=== PATIENT | male | born 1955 | race Caucasian/White ===

== ENCOUNTER 2016-12-07 09:30 | Inpatient (IN) ==
[2016-11-30 16:51] LABS: Appearance,Urine CLEAR; Bilirubin,Urine NEG (NEG); Color,Urine STRAW; Glucose,Urine (UA) NEGATIVE (NEG); Leukocyte Esterase,Urine NEG /uL (NEG); Nitrate,Urine NEG (NEG); Protein,Urine NEG (NEG); Specific Gravity,Urine 1.002 (1.000-1.035); Urine Blood NEG mg/dL (<0.03); Urobilinogen,Urine NEG (NEG)
[2016-11-30 17:43] LABS: Basophils # (Auto) 0 K/mcL (0.0-0.3); Basophils % (Auto) 0.7 % (0.0-2.0); Eosinophils # (Auto) 0.3 K/mcL (0.0-0.7); Eosinophils % (Auto) 4.7 % (0.0-7.0); Lymphocytes # (Auto) 1.4 K/mcL (1.5-4.8); Lymphocytes % (Auto) 21.8 % (15.5-49.0); Mean Cell Volume 91.6 fL (80.0-100.0); Mean Corpuscular Hemoglobin 31.2 pg (26.0-34.0); Monocytes # (Auto) 0.6 K/mcL (0.1-0.9); Monocytes % (Auto) 9.8 % (1.0-12.0); Platelet Count 195 K/mcL (140-440); RBC 5.12 M/mcL (4.50-5.90); Red Cell Distribution Width 14.4 % (11.5-14.5)
[2016-11-30 17:48] LABS: Blood Urea Nitrogen 12 mg/dl (8-23)
[~2016-12-07 09:30] MED LIST: ACETAMINOPHEN 500 MG TABLET PO SCH; CELECOXIB 200 MG CAPSULE PO SCH; KETOROLAC 30 MG, ROPIVACAINE HCL/PF 49.5 ML, EPINEPHrine 0.5 MG, 0.9 % SODIUM CHLORIDE ... IJ SCH; PREGABALIN 75 MG CAPSULE PO SCH; oxyCODONE 10 MG TAB.ER.12H PO SCH
[2016-12-07] MEDS ORDERED: GABAPENTIN 300 MG CAPSULE PO ONE (14:12)
[2016-12-07] MEDS ORDERED: BETHANECHOL 25 MG TABLET PO ONE (14:12)
[2016-12-07] MEDS ORDERED: ceFAZolin 1 GM VIAL IV SCH ×2 (14:30→22:30)
[2016-12-07] MEDS ORDERED: TRANEXAMIC ACID 1,000 MG/10 ML VIAL IV ONE ×2 (15:00→17:10)
[2016-12-07] MEDS ORDERED: BUPIVACAINE LIPOSOMAL IJ ONE ×2 (15:00→15:27)
[2016-12-07] MEDS ORDERED: ROPIVACAINE HCL/PF 20 ML VIAL IJ ONE (15:00)
[2016-12-07] MEDS ORDERED: BETHANECHOL 10 MG TABLET PO ONE (15:00)
[2016-12-07] MEDS ORDERED: GENTAMICIN SULFATE 800 MG/20 ML VIAL IR ONE (15:41)
[2016-12-07] MEDS ORDERED: METOPROLOL TARTRATE 5 MG/5 ML VIAL IV PRN (16:06)
[2016-12-07] MEDS ORDERED: METHOCARBAMOL 1,000 MG/10 ML VIAL IV PRN (16:06)
[2016-12-07] MEDS ORDERED: MEPERIDINE 25 MG/ML SYRINGE IV PRN (16:06)
[2016-12-07] MEDS ORDERED: HYDROmorphone 2 MG/ML SYRINGE IV PRN ×2 (16:06→17:10)
[2016-12-07] MEDS ORDERED: ONDANSETRON 4 MG/2 ML VIAL IV PRN ×2 (16:06→17:10)
[2016-12-07] MEDS ORDERED: IPRATROPIUM/ALBUTEROL 3 ML AMPUL.NEB NEB PRN (16:06)
[2016-12-07] MEDS ORDERED: fentaNYL 100 MCG/2 ML VIAL IV PRN (16:06)
[2016-12-07] MEDS ORDERED: BENZOCAINE/MENTHOL 1 LOZENGE PO PRN ×2 (16:06→17:10)
[2016-12-07] MEDS ORDERED: LACTATED RINGERS 1,000 ML IV SCH (16:15)
[2016-12-07] MEDS ORDERED: POLYETHYLENE GLYCOL 3350 17 GM PACKET PO PRN (17:10)
[2016-12-07] MEDS ORDERED: BISACODYL 10 MG SUPP.RECT PR PRN (17:10)
[2016-12-07] MEDS ORDERED: HYDROcodone/APAP 10/325MG TABLET PO PRN (17:10)
[2016-12-07] MEDS ORDERED: FLEETS ADULT ENEMA PR PRN (17:10)
[2016-12-07] MEDS ORDERED: TEMAZEPAM 15 MG CAPSULE PO PRN (17:10)
[2016-12-07] MEDS ORDERED: MAGNESIUM HYDROXIDE 30 ML ORAL.SUSP PO PRN (17:10)
[2016-12-07] MEDS ORDERED: ACETAMINOPHEN 325 MG TABLET PO PRN (17:10)
--- NOTE | 2016-12-07 17:10 | Brief Operative Note ---
Date of procedure: 12/07/16 Pre-op diagnosis: Right knee severe djd all compartments Post-op diagnosis: same Procedure: Right TKA with felix robot Grafts/Implants: Yes Anesthesia: GETA Complications Description: 12/07/16 17:10 none Surgeon: Kalia Stoddard Beam Carrier Hauler Pusher: Jet Francisco Estimated blood loss (cc): 100 Tourniquet Time (Minutes): 76 Specimens Removed/Pathology: none sent Condition: stable Disposition: PACU
[2016-12-07] MEDS ORDERED: DIPHENOXYLATE HCL/ATROPINE 1 TABLET PO PRN (17:13)
[2016-12-07] MEDS ORDERED: MONTELUKAST 10 MG TABLET PO PRN (17:13)
[2016-12-07] MEDS ORDERED: 0.45 % SODIUM CHLORIDE 1,000 ML IV SCH (17:15)
--- NOTE | 2016-12-07 17:16 | Discharge Summary ---
Ortho Discharge - TKA - Patient Instructions Diet: Regular Diet Activity: activity as tolerated, weight bearing as tolerated Total Knee Protocol: For Total Knee: Start ROM RENZO with stationary bike or rocking chair. Work on gaining full extension of knee. Posterior dislocation precautions provided. Hip abductor strengthening and gait training instructions provided. Apply Cryocuff as instructed. Dressing Care: Aquacel Ag - leave on for 5 days Patient Education: Total Knee Replacement (DC) Additional Instructions: For Total Knee: Start ROM RENZO with stationary bike or rocking chair. Work on gaining full extension of knee. Posterior dislocation precautions provided. Hip abductor strengthening and gait training instructions provided. Apply Cryocuff as instructed.Discharge Instructions: Do the exercises at home that physical therapy gave you. You are scheduled to start physical therapy at the [facility] ([phone]) on Dec.09 at 1:30 pm, please arrive 15 minutes early for paperwork. Take your prescription, photo ID, insurance cards, and current medication list with you to your first physical therapy appointment. Take your prescription to case picker any medication or equipment (such as walker, crutches, toilet riser or C.P.M.) Wear comfortable clothing (shorts) for your physical therapy. Weight bearing as tolerated. If you have the Aquacel Ag dressing, leave in place for 7 days then remove. If dressing becomes soiled (turns black), remove and use gauze 4x4 dressing and silvasorb ointment and change daily. Keep incision clean and dry. If you have Dermabond (a dressing with a mesh-like appearance), leave open to air. You may start showering on post op day #2. The Dermabond dressing can get wet, do not scrub dressing. Pat dry. To avoid constipation while taking any narcotic pain medication, take an over the counter stool softener/laxative. Use your Cryocuff or ice packs as directed, on for 20 minutes at a time throughout the day. This and elevation will help with pain and swelling. Call your physician for fevers above 100.5 or pain not controlled by medication. Your prescriptions are with your discharge information. Some medications were electronically transmitted to your pharmacy of choice. - Follow Up Plan Follow Up Appointments: Kalia Stoddard MD [Physician] - 12/22/16 8:40 am Disposition: Home, Self-Care Prognosis: Good Rehab Potential: Good I certify that the patient requires SNF services: No Overall status at discharge: patient is progressing back to baseline - Orders For Discharge Prescriptions: ceFAZolin [Ancef] 2 gm IV Q8H #2 vial Additional Discharge Orders: Physical Therapy at Discharge - TKA Location: Determined By Patient CPM Discharge Order Location: Determined By Patient
[2016-12-07] MEDS ORDERED: KETOROLAC 15 MG/ML VIAL IV SCH (18:00)
[2016-12-07] MEDS ORDERED: ACETAMINOPHEN 1,000 MG/100 ML BOTTLE IV ONE (20:00)
[2016-12-07] MEDS ORDERED: SENNOSIDES 1 TABLET PO SCH (21:00)
[2016-12-07] MEDS ORDERED: TERAZOSIN 5 MG CAPSULE PO SCH (21:00)
[2016-12-07] MEDS ORDERED: ASPIRIN 325 MG ENTERIC COATED TABLET PO SCH (21:00)
[2016-12-07] MEDS ORDERED: PRAZOSIN 1 MG CAPSULE PO SCH (21:00)
[2016-12-07] MEDS ORDERED: DOCUSATE SODIUM 100 MG CAPSULE PO SCH (21:00)
[2016-12-07] MEDS ORDERED: 0.9 % SODIUM CHLORIDE 10 ML SYRINGE IV SCH (22:00)
--- NOTE | 2016-12-08 07:56 | XRay Report ---
HISTORY: Reason for Exam:Post-Op Total Knee FINDINGS: There is well positioned total knee prosthesis. No fracture is present. There is a large heterotopic calcification or spur arising from the anterior tibial tubercle. Calcified phleboliths are seen in the calf. IMPRESSION: Well-positioned knee prosthesis Interpreted and Authenticated by: Bry Terrazas 12/08/16
--- NOTE | 2016-12-08 08:34 | Operative Note ---
DATE OF OPERATION: 12/07/2016 PREOPERATIVE DIAGNOSIS: Right knee severe degenerative arthritis of all three compartments. POSTOPERATIVE DIAGNOSIS: Right knee severe degenerative arthritis of all three compartments. PROCEDURE: Right total knee replacement. SURGEON: Kalia Stoddard M.D. REJECT OPENER AND FILLER: Jet Francisco PA-C. ANESTHESIA: General LMA anesthesia. COMPLICATIONS: None. DESCRIPTION OF PROCEDURE: The patient was brought to the operating room and put to sleep with general LMA anesthesia. Once asleep, the patient had the right leg sterilely prepped and draped in the usual sterile fashion. Once sterilely prepped and draped, we then confirmed the operative site with a time out. Preop antibiotics had been given with 2 grams of Ancef. Ioban was placed over the skin, and we made a midline incision, a mid vastus approach performed. We subluxed the patella laterally and prepared the patella, initially cutting this to 15 mm. We then removed the bony fragments and then subluxed the patella laterally with a metal plate to protect the patella. We then registered two intra-articular pins. We registered the range of motion preoperatively to be 10 degree flexion contracture with about 10 degrees of varus. With these findings, we then balanced the knee using soft tissue releases and rotating the implant 1 extra degree externally and with 1 degree varus placement of the tibial baseplate. We irrigated thoroughly and then brought in the robot, registered 30 points on the femur and tibia, and then registered the robot and intraarticular pins. Once this was confirmed, we then removed osteophytes prior to the balancing noted above. Robot made our distal femoral cut and our posterior chamfer cut. These bony fragments were removed. We then brought in a different blade, made our posterior cut, anterior cut and anterior chamfer cuts. Then we made the tibial cut using the robot, protecting the patellar tendon laterally. We irrigated thoroughly. We then prepared the tibial surface, removing extra bone and spurs in the meniscus. Posterior spurs were removed, both posteriorly on the femur. I then trialed the size 7 tibial baseplate with external rotation set by the robot. We irrigated thoroughly and then tapped into place a size 7 femur, placed as far laterally as anatomically permitted. We irrigated thoroughly. Once done, we then irrigated and trialed a size 9, a size 11. The 9 was the most appropriate size initially. We then released a little more of the deep head of the posterior cruciate and extended this distally until the joint balanced perfectly both medial and laterally in both flexion and extension. The robot was used to register about 3 degrees of flexion contracture and neutral alignment or 1 degree of varus. We irrigated thoroughly. We then cemented into place a size 7 tibial baseplate, external rotation set by the robot, which had been put into place with a 50 mm additional stem for additional stability. The bone was prepared both with pulse lavage and then the CarboJet to remove any fatty tissue from the bone to get better penetration of the cement into the bone. Once done, we removed excess cement and then placed the femur. A size 7 femur was tapped into place and then we removed excess cement. We placed a 9 mm poly initially and then prepared the patella. It measured 39 mm. A small chamfer cut was made laterally and any spurs were removed. We irrigated thoroughly and then cemented into place a 39 mm patellar button after using the CarboJet to clean the bone. Excess cement was removed using a 15 or 10 blade. We then kept the knee at 45 degrees until all components were dry. We then repaired the mid vastus approach after dropping the tourniquet noting that we did trial the size 11. This was the most appropriate after balancing the knee and releasing the medial collateral ligament. This was repaired placing a size 11 poly. We irrigated thoroughly and then controlled bleeding with Bovie and then repaired the capsule with three #1 Stratafix barbed suture. This gave excellent repair. The medial capsule had a small tear which was repaired with the capsular repair. We irrigated thoroughly and closed the skin with 2-0 Monocryl and adhesive closure. The portals were closed with 3-0 nylon. Sterile bandage was applied. Tourniquet time was about 76 minutes. SCOTT:rosanne Job ID: [id number] Doc ID: [id number] Kalia Stoddard MD
[2016-12-08] MEDS ORDERED: TAMSULOSIN 0.4 MG CAPSULE PO SCH (09:00)
[2016-12-12] MEDS ORDERED: TESTOSTERONE CYPIONATE 200 MG/ML IM SCH (09:00)
== END 2016-12-07 21:59 | disposition home or self-care (01) | DRG 470 ==
LOC: MEDSUR 12:40
PROVIDERS: ADMIT Orthopaedic Surgery; ATTEND Orthopaedic Surgery